=== PATIENT | male | born 2000 | race Caucasian/White ===

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

== ENCOUNTER 2019-01-20 08:27 | Emergency (ER) | payer SELFPAY ==
[2019-01-20 08:39] VITALS: O2SAT 98
--- NOTE | 2019-01-20 08:47 | ED.PDOC ---
History of Present Illness - General Chief Complaint: General Stated Complaint: dizzy today, facial swelling and not feeling well Time Seen by Provider: 01/20/19 08:42 Source: patient Exam Limitations: no limitations - History of Present Illness Initial Comments: he patient is a 18-year-old male presenting to the emergency room secondary to mild headache for last couple of days as well as increased pressure above the left eye. No pain with extraocular movements. No significant sinus drainage. No fever. He has had a mild headache and mild dizziness with it. No significant long-term medical problems. No nausea or vomiting. No syncope. No trauma. No neurological changes otherwise. The patient does have tenderness to palpation over the left frontal sinus. Timing/Duration: other - 3 days Severity: mild Improving Factors: medication Worsening Factors: nothing Associated Symptoms: headaches Allergies/Adverse Reactions: Allergies NO KNOWN ALLERGY Allergy (Verified 01/20/19 08:35) Home Medications: Ambulatory Orders Amoxicillin & Pot Clavulanate [Augmentin Tab] 875 mg PO BID #14 tab 01/20/19 Sertraline HCl 50 mg PO AC 01/20/19 Review of Systems - Review of Systems Constitutional: States: malaise EENTM: States: no symptoms reported Respiratory: States: no symptoms reported Cardiology: States: no symptoms reported Gastrointestinal/Abdominal: States: no symptoms reported Genitourinary: States: no symptoms reported Musculoskeletal: States: no symptoms reported Skin: States: no symptoms reported Neurological: States: headache Endocrine: States: no symptoms reported All other Systems: No Change from Baseline Past Medical History (General) - Patient Medical History Hx Seizures: No Hx Stroke: No Hx Dementia: No Hx Asthma: No Hx of COPD: No Hx Cardiac Disorders: No Hx Congestive Heart Failure: No Hx Pacemaker: No Hx Hypertension: No Hx Thyroid Disease: No Hx Diabetes: No Hx Gastroesophageal Reflux: No Hx Renal Disease: No Hx Cancer: No Hx of HIV: No Hx Hepatitis C: No Hx MRSA: No Surgical History: no surgical history - Vaccination History Hx Tetanus, Diphtheria Vaccination: Yes Hx Influenza Vaccination: No Hx Pneumococcal Vaccination: No Immunizations Up to Date: No - Social History Hx Tobacco Use: No - vapes as well Years Tobacco Use: 2 Cigarettes Packs Per Day: 1 Hx Chewing Tobacco Use: No Hx Alcohol Use: Yes 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 Hx Substance Use Treatment: Yes - in a recovery program Hx Depression: Yes Feels Threatened In Home Enviroment: No Feels Threatened In a Relationship: No Hx Physical Abuse: No Hx Emotional Abuse: No Hx Suspected Abuse: No Family Medical History - Family History Mother Family History: Unknown Living Status: Still Living Hx Family Asthma: No Hx Family Congestive Heart Failure: No Hx Family Hypertension: No Physical Exam - Physical Exam General Appearance: Alert, Comfortable, No apparent distress Eye Exam: bilateral normal Ears, Nose, Throat: hearing grossly normal, normal pharynx Neck: full range of motion, supple Respiratory: no respiratory distress, no accessory muscle use Cardiovascular/Chest: normal peripheral pulses, no edema Peripheral Pulses: radial,right: 2+, radial,left: 2+ Gastrointestinal/Abdominal: non tender, soft Rectal Exam: deferred Extremity: normal range of motion, no pedal edema, no calf tenderness, normal capillary refill 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 The patient is started on Augmentin and a dose of prednisone here. He will be continued on Augmentin for 7 days. 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 He can also use Motrin or ibuprofen 600 mg 3 times a day for the next couple of days as well. He does need to take this with food. ER warnings were given for any significant worsening. Keep routine follow up with primary care doctor. Keep well-hydrated. charissa huerta [id number] Departure - Departure Clinical Impression: Acute frontal sinusitis Qualifiers: Recurrence: non-recurrent Qualified Code(s): J01.10 - Acute frontal sinusitis, unspecified Disposition: Discharge to Home or Self Care Condition: Fair Departure Forms: ED Discharge - Pt. Copy, Patient Portal Self Enrollment Instructions: Sinus Headache (DC) Diet: regular diet Activity: increase activity as tolerated Prescriptions: Amoxicillin & Pot Clavulanate [Augmentin Tab] 875 mg PO BID #14 tab Home Medications: Ambulatory Orders Amoxicillin & Pot Clavulanate [Augmentin Tab] 875 mg PO BID #14 tab 01/20/19 Sertraline HCl 50 mg PO AC 01/20/19 Additional Instructions: the patient is a 18-year-old male presenting with a left-sided headache that I believe is most likely due to a left frontal sinusitis given his constellation of symptoms. The patient is started on Augmentin and a dose of prednisone here. He will be continued on Augmentin for 7 days. 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 He can also use Motrin or ibuprofen 600 mg 3 times a day for the next couple of days as well. He does need to take this with food. ER warnings were given for any significant worsening. Keep routine follow up with primary care doctor. Keep well-hydrated.
[2019-01-20] MEDS: predniSONE 20 MG TAB PO ONE (08:48)
[2019-01-20] MEDS: AMOXICILLIN & POT CLAVULANATE 875 MG TAB PO ONE (08:48)
[2019-01-20 09:00] VITALS: BP 136/72; TEMP 97
== END 2019-01-20 08:58 | disposition home or self-care (01) ==
LOC: ER 08:27
DX: J01.10 Acute frontal sinusitis, unspecified (principal); R42 Dizziness and giddiness; F32.9 Major depressive disorder, single episode, unspecified; Z87.891 Personal history of nicotine dependence

== ENCOUNTER 2019-08-13 21:19 | Emergency (ER) | payer SELFPAY ==
[2019-08-13] MEDS ORDERED: SODIUM CHLORIDE 0.9% (FLUSH) 10 ML SYG IV PRN (21:27)
[2019-08-13] MEDS ORDERED: SODIUM CHLORIDE 0.9% 1000ML 1,000 ML IVS ONE (21:28)
[2019-08-13] MEDS ORDERED: CYCLOBENZAPRINE HCL 10 MG TAB PO ONE (21:28)
--- NOTE | 2019-08-13 21:32 | ED.PDOC ---
History of Present Illness - General Chief Complaint: Upper Extremity Injury Stated Complaint: shoulder pain Time Seen by Provider: 08/13/19 21:27 Source: patient - History of Present Illness Initial Comments: 19 yo male bib EMS from home for cc of left upper back pain. Pt reports drinking whiskey all day today and is clearly intoxicated but awake and alert and able to provide some history. States began suddenly approx 1 hour ago, located to Left shoulder blade region, radiates down left back, constant, sharp/grabbing, 8/10 severity, worse with deep breathing and palpation, tried Tylenol at home w/o relief. Denies any chest pain, cough, dyspnea, fevers, chills, abd pain, n/v/d, leg swelling. Allergies/Adverse Reactions: Allergies NO KNOWN ALLERGY Allergy (Verified 01/20/19 08:35) Home Medications: Ambulatory Orders Cyclobenzaprine HCl [Flexeril] 10 mg PO Q8H PRN 30 Days #30 tab 08/13/19 Review of Systems - Review of Systems Review of Systems: 08/13/19 21:32 as per HPI All other Systems: Reviewed and Negative Past Medical History (General) - Patient Medical History Hx Seizures: No Hx Stroke: No Hx Dementia: No Hx Asthma: No Hx of COPD: No Hx Cardiac Disorders: No Hx Congestive Heart Failure: No Hx Pacemaker: No Hx Hypertension: No Hx Thyroid Disease: No Hx Diabetes: No Hx Gastroesophageal Reflux: No Hx Renal Disease: No Hx Cancer: No Hx of HIV: No Hx Hepatitis C: No Hx MRSA: No - Vaccination History Hx Tetanus, Diphtheria Vaccination: Yes Hx Influenza Vaccination: No Hx Pneumococcal Vaccination: No - Social History Hx Tobacco Use: No - vapes as well Hx Chewing Tobacco Use: No Hx Alcohol Use: Yes 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 Hx Substance Use Treatment: Yes - in a recovery program Hx Depression: Yes Hx Physical Abuse: No Hx Emotional Abuse: No Hx Suspected Abuse: No Family Medical History - Family History Mother Family History: Unknown Living Status: Still Living Hx Family Asthma: No Hx Family Congestive Heart Failure: No Hx Family Hypertension: No Physical Exam - Physical Exam General Appearance: Alert, No apparent distress, Unkempt, Other - intoxicated Eye Exam: bilateral normal Ears, Nose, Throat: hearing grossly normal, normal ENT inspection, normal pharynx Neck: non-tender, full range of motion, supple, normal inspection Respiratory: chest non-tender, lungs clear, normal breath sounds, no respiratory distress, no accessory muscle use Cardiovascular/Chest: normal peripheral pulses, regular rate, rhythm, no edema, no gallop, no JVD, no murmur Peripheral Pulses: radial,right: 2+, radial,left: 2+ Gastrointestinal/Abdominal: non tender, soft, no organomegaly Back Exam: normal inspection, no CVA tenderness, no vertebral tenderness, muscle spasm - Left shoulder blade region with moderate ttp but no deformity/bruising/swelling, other - LUE appears normal on inspection, strength/sensation/pulses/ROM normal BL UE Extremity: normal range of motion, non-tender, normal inspection, no pedal edema, no calf tenderness, normal capillary refill 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 Does not appear emergent, pt stable -obtain bloodwork, CXR, L shoulder XR, UA, drug screen -1 L NS bolus, Flexeril 10 mg PO 08/13/19 22:18 -Pt is already reporting marked improvement in pain with IV fluids & Flexeril and asking to go home. -XR Chest shows no acute processes per my read. XR L shoulder shows no acute pr ocesses per my read. -Labwork reveals +cannabinoids on UDS but otherwise unremarkable. -Discussed dx of acute L shoulder muscle spasm - advised rest, OTC anlagesics, rehydration. Advised alcohol and drug cessation as well. Given PRN Rx of Flexeril. -dc to home in good condition with his who is driving him home and will continue to monitor him, return warnings discussed, f/u closely with PCP Thierry Galan MD Billing #[id number] 08/13/19 21:27 IV Care:Saline Lock per Protoc QSHIFT Telemetry .ONCE Sodium Chloride 0.9% (Flush) [Saline Flush Syringe] 10 ml IV PRN PRN 08/13/19 21:28 Sodium Chloride 0.9% 1000ML [Ns 1000 ml] 1,000 ml IVS ONCE Laboratory Results - last 24 hr 08/13/19 08/13/19 08/13/19 21:40 22:06 22:06 WBC 10.7 RBC 4.99 Hgb 16.2 Hct 46.2 MCV 92.6 MCH 32.6 H MCHC 35.2 RDW 12.4 Plt Count 269 MPV 9.6 Absolute Neuts (auto) 5.20 Absolute Lymphs (auto) 4.40 H Absolute Monos (auto) 0.70 Absolute Eos (auto) 0.20 Absolute Basos (auto) 0.10 Neutrophils % 48.6 Lymphocytes % 41.4 Monocytes % 7.0 Eosinophils % 2.1 Basophils % 0.9 Sodium 144 Potassium 3.6 Chloride 112 H Carbon Dioxide 21 Anion Gap 14.6 BUN 10 Creatinine 0.63 BUN/Creatinine Ratio 15.9 Random Glucose 93 Serum Osmolality 285.6 Calcium 9.5 Creatine Kinase 146 Urine Color Urine Appearance Urine pH Ur Specific [place] Urine Protein Urine Glucose (UA) Urine Ketones Urine Blood Urine Nitrite Urine Bilirubin Urine Urobilinogen Ur Leukocyte Esterase Urine RBC Urine WBC Ur Epithelial Cells Urine Bacteria Urine Opiates Screen Negative Urine Barbiturates Negative Ur Phencyclidine Scrn Negative U Amphetamin/Meth Scrn Negative U Benzodiazepines Scrn Negative U Cocaine Metab Screen Negative U Cannabinoids Screen Positive H 08/13/19 22:06 WBC RBC Hgb Hct MCV MCH MCHC RDW Plt Count MPV Absolute Neuts (auto) Absolute Lymphs (auto) Absolute Monos (auto) Absolute Eos (auto) Absolute Basos (auto) Neutrophils % Lymphocytes % Monocytes % Eosinophils % Basophils % Sodium Potassium Chloride Carbon Dioxide Anion Gap BUN Creatinine BUN/Creatinine Ratio Random Glucose Serum Osmolality Calcium Creatine Kinase Urine Color Yellow Urine Appearance Clear Urine pH 8.5 H Ur Specific [place] 1.015 Urine Protein Negative Urine Glucose (UA) Negative Urine Ketones Negative Urine Blood Negative Urine Nitrite Negative Urine Bilirubin Negative Urine Urobilinogen 0.2 Ur Leukocyte Esterase Negative Urine RBC 0 Urine WBC 0 Ur Epithelial Cells 0 Urine Bacteria 0 Urine Opiates Screen Urine Barbiturates Ur Phencyclidine Scrn U Amphetamin/Meth Scrn U Benzodiazepines Scrn U Cocaine Metab Screen U Cannabinoids Screen Departure - Departure Clinical Impression: Muscle spasm of left shoulder Time of Disposition: 22:08 Disposition: Discharge to Home or Self Care Condition: Fair Departure Forms: ED Discharge - Pt. Copy, Patient Portal Self Enrollment Instructions: Muscle Spasms (DC) Diet: resume usual diet Activity: increase activity as tolerated Prescriptions: Cyclobenzaprine HCl [Flexeril] 10 mg PO Q8H PRN 30 Days #30 tab PRN Reason: Muscle Spasms Home Medications: Ambulatory Orders Cyclobenzaprine HCl [Flexeril] 10 mg PO Q8H PRN 30 Days #30 tab 08/13/19 Additional Instructions: Remain well-hydrated and advance diet as tolerated. Drink plenty of fluids and avoid further alcohol consumption. I recommend also not drinking alcohol in excess or frequently as it can cause long-term damage to your body, liver, and pancreas. Continue taking ibuprofen 600-800 mg every 6-8 hours as needed and Tylenol 650 mg every 6 hours as needed for pain. You may take the Flexeril as directed for muscle spasms. Follow up with your primary care doctor is recommended in 1-2 weeks for repeat evaluation or sooner as needed.
--- NOTE | 2019-08-13 22:00 | RAD ---
EXAM DESCRIPTION: XR Chest, 1 View CLINICAL HISTORY: 19 years Male left upper back pain, nontraumatic TECHNIQUE: One view of the chest. COMPARISON: No prior exams provided for comparison. FINDINGS: The lungs are clear without focal consolidation, effusion, or pneumothorax. The cardiomediastinal silhouette and central pulmonary vasculature are normal. No acute osseous abnormalities. IMPRESSION: No acute cardiopulmonary abnormalities. Electronically signed by: Bambi Meek MD 08/13/2019 9:58 PM CDT
--- NOTE | 2019-08-13 22:01 | RAD ---
EXAM DESCRIPTION: XR Shoulder, Left 2 or More Views CLINICAL HISTORY: 19 years Male acute left posterior shoulder pain, nontraumatic TECHNIQUE: Two views of the left shoulder are provided. COMPARISON: No prior exams provided for comparison. FINDINGS: There is no acute fracture or dislocation. The glenohumeral and acromioclavicular joints are normal. There are no aggressive osseous lesions. Visualized portions of the left lung are clear. IMPRESSION: No acute findings in the left shoulder. Electronically signed by: Bambi Meek MD 08/13/2019 9:59 PM CDT
[2019-08-13 22:08] VITALS: BP 140/81; TEMP 96.5; O2SAT 98
== END 2019-08-13 22:28 | disposition home or self-care (01) ==
LOC: ER 21:19
DX: M62.838 Other muscle spasm (principal); M54.9 Dorsalgia, unspecified; F12.90 Cannabis use, unspecified, uncomplicated; U07.0 Vaping-related disorder
CPT/HCPCS: 71045; 73030; 80048; 80307; 81001; 82550; 85025; J7030